=== PATIENT | female | born 1970 | race African-American/Black ===

== ENCOUNTER 2017-09-09 17:12 | Inpatient (IN) | payer OTHER ==
[2017-09-09 17:37] VITALS: BMI 23.0
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
[2017-09-09] MEDS ORDERED: hydrOXYzine PAMOATE 50 MG CAPSULE (FP) PO PRN (19:52)
[2017-09-09] MEDS ORDERED: ACETAMINOPHEN 325 MG TABLET (FP) PO PRN (19:52)
[2017-09-09] MEDS ORDERED: P-EPHED 60MG/TRIPROLIDI 2.5MG TABLET PO PRN (19:52)
[2017-09-09] MEDS ORDERED: MAG HYDROX/AL HYDROX/SIMETH 30 ML UNIT-DOSE CUP PO PRN (19:52)
[2017-09-09] MEDS ORDERED: NICOTINE POLACRILEX 2 MG GUM BC PRN (19:52)
[2017-09-09] MEDS ORDERED: LOPERAMIDE HCL 2 MG CAPSULE PO PRN (19:52)
[2017-09-09] MEDS ORDERED: MAGNESIUM HYDROX 2400MG/30ML ORAL SUSPENSION 30 ML CUP PO PRN (19:52)
[2017-09-09] MEDS ORDERED: MAGNESIUM CITRATE 300 ML BOTTLE PO PRN (19:52)
[2017-09-09] MEDS ORDERED: chlordiazePOXIDE HCL 25 MG CAPSULE PO PRN (19:52)
[2017-09-09] MEDS ORDERED: MENTHOL/PHENOL 1 EACH UD MM PRN (19:52)
[2017-09-09] MEDS ORDERED: IBUPROFEN 400 MG TABLET (FP) PO PRN (19:52)
[2017-09-09] MEDS: CYCLOBENZAPRINE HCL 5 MG TABLET PO SCH (21:11)
[2017-09-09] MEDS: THIAMINE HCL 100 MG TABLET (FP) PO SCH (21:12)
[2017-09-09] MEDS ORDERED: MELATONIN 5 MG TABLETS PO PRN (22:00)
[2017-09-09] MEDS: chlordiazePOXIDE HCL 25 MG CAPSULE PO SCH (23:53)
[2017-09-10] MEDS: guaiFENesin/D-METHORPHAN HB 10 ML UNIT-DOSE CUPS PO PRN ×2 (04:38→15:26)
[2017-09-10] MEDS: chlordiazePOXIDE HCL 25 MG CAPSULE PO SCH ×4 (07:40→22:45)
[2017-09-10] MEDS: CYCLOBENZAPRINE HCL 5 MG TABLET PO SCH ×3 (07:40→22:19)
--- NOTE | 2017-09-10 09:58 | PN ---
S CIWA - CIWA Score Nausea/Vomitin Muscle Tremors: 3 Anxiety: 2 Agitation: 2 Paroxysmal Sweats: 1-Minimal Palms Moist Orientation: 0-Oriented Tacttile Disturbances: 1-Very Mild Itch/Numbness Auditory Disturbances: 1-Very Mild Visual Disturbances: 0-None Headache: 2-Mild CIWA-Ar Total Score: 15 BHS Progress Note (SOAP) Subjective: ALERT,IRRITABLE,ANXIOUS,INTERRUPTED SLEEP,TREMOR Objective: 09/10/17 09:54 Vital Signs Temperature 97.7 F 09/10/17 09:10 Pulse Rate 74 09/10/17 09:10 Respiratory Rate 18 09/10/17 09:10 Blood Pressure 114/74 09/10/17 09:10 O2 Sat by Pulse Oximetry (%) EKG NSR PROLONG QT 412/460 NO CHEST PAIN,NO SOB,NO DIZZINESS LABS PENDING Assessment: 09/10/17 09:57 WITHDRAWAL SYMPTOM Plan: CONTINUE DETOX,
[2017-09-10 10:17] LABS: CHLORIDE 109 mmol/L (98-107); POTASSIUM 4.2 mmol/L (3.5-5.1); SODIUM 145 mmol/L (136-145)
[2017-09-10 10:18] LABS: HEMATOCRIT 40.3 % (32.4-45.2); HEMOGLOBIN 13.4 GM/dL (10.7-15.3); MCH 32.9 pg (25.7-33.7); MCHC 33.4 g/dl (32.0-36.0); MEAN CELL VOLUME 98.6 fl (80-96); MEAN PLT VOLUME 8.8 fl (7.5-11.1); PLATELET COUNT 221 K/MM3 (134-434); RBC 4.08 M/mm3 (3.60-5.2); RDW 12.8 % (11.6-15.6); WHITE BLOOD COUNT 6.2 K/mm3 (4.0-10.0)
[2017-09-10 11:14] LABS: ALBUMIN 3.1 g/dl (3.4-5.0); ALK PHOS 83 U/L (45-117); ANION GAP 5 (8-16); BILIRUBIN,TOTAL 0.7 mg/dL (0.2-1.0); BLOOD UREA NITROGEN 16 mg/dL (7-18); CALCIUM 8.2 mg/dL (8.5-10.1); CO2 31 mmol/L (21-32); CREATININE 1.1 mg/dL (0.55-1.02); GLUCOSE,RANDOM 88 mg/dL (74-106); SGOT/AST 11 U/L (15-37); SGPT/ALT 13 U/L (12-78); TOT PROT 6.2 g/dl (6.4-8.2)
[2017-09-10] MEDS: NICOTINE 14 MG/24 HOURS TOPICAL PATCH TD SCH (11:27)
[2017-09-10] MEDS: PRENATAL VITAMINS W/ FOLIC ACID TABLET (FP) PO SCH (11:28)
--- NOTE | 2017-09-10 16:23 | EKG ---
Test Reason : Blood Pressure : / mmHG Vent. Rate : 075 BPM Atrial Rate : 075 BPM P-R Int : 166 ms QRS Dur : 078 ms QT Int : 412 ms P-R-T Axes : 069 053 070 degrees QTc Int : 460 ms NORMAL SINUS RHYTHM POSSIBLE LEFT ATRIAL ENLARGEMENT BORDERLINE ECG NO PREVIOUS ECGS AVAILABLE Confirmed by MD Ketan, Shmuel ([id number]) on 09/10/2017 4:23:19 PM Referred By: Confirmed By:Shmuel Aceves MD
--- NOTE | 2017-09-10 18:29 | CONSULT ---
[facility] Psychiatric Consult - Data Date of interview: 09/10/17 Admission source: [facility] Identifying data: Patient is approached at bedside for psychiatric interview.Ms Veras declines." Good by, I don't need psychiatrists ".Nursing staff is made aware.
[2017-09-10] MEDS: THIAMINE HCL 100 MG TABLET (FP) PO SCH (22:18)
[2017-09-11] MEDS: chlordiazePOXIDE HCL 25 MG CAPSULE PO SCH ×3 (06:46→17:42)
[2017-09-11] MEDS: CYCLOBENZAPRINE HCL 5 MG TABLET PO SCH ×3 (06:46→22:37)
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
[2017-09-11] MEDS: NICOTINE 14 MG/24 HOURS TOPICAL PATCH TD SCH (10:41)
[2017-09-11] MEDS: PRENATAL VITAMINS W/ FOLIC ACID TABLET (FP) PO SCH (10:41)
[2017-09-11] MEDS: guaiFENesin/D-METHORPHAN HB 10 ML UNIT-DOSE CUPS PO PRN (10:43)
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
[2017-09-11] MEDS: chlordiazePOXIDE 5 MG CAPSULE PO SCH (22:37)
[2017-09-11] MEDS: THIAMINE HCL 100 MG TABLET (FP) PO SCH (22:38)
[2017-09-12] MEDS: chlordiazePOXIDE 5 MG CAPSULE PO SCH ×3 (05:52→17:56)
[2017-09-12] MEDS: CYCLOBENZAPRINE HCL 5 MG TABLET PO SCH ×3 (05:52→22:42)
--- NOTE | 2017-09-12 10:37 | PN ---
BHS Progress Note (SOAP) Subjective: ALERT,IRRITABLE,ANXIOUS,INTERRUPTED SLEEP Objective: 09/12/17 10:36 Vital Signs Temperature 98.8 F 09/12/17 09:13 Pulse Rate 75 09/12/17 09:13 Respiratory Rate 18 09/12/17 09:13 Blood Pressure 101/66 09/12/17 09:13 O2 Sat by Pulse Oximetry (%) Assessment: 09/12/17 10:36 WITHDRAWAL SYMPTOM Plan: CONTINUE DETOX,DISCHARGE IN AM
[2017-09-12] MEDS: NICOTINE 14 MG/24 HOURS TOPICAL PATCH TD SCH (11:00)
[2017-09-12] MEDS: PRENATAL VITAMINS W/ FOLIC ACID TABLET (FP) PO SCH (11:00)
[2017-09-12 14:15] LABS: URINE APPEARANCE SLCLOUDY; URINE BILIRUBIN NEGATIVE (<2.0 mg/dL); URINE GLUCOSE (UA) NEGATIVE (NEGATIVE); URINE KETONE NEGATIVE (NEGATIVE); URINE LEUK ESTERASE NEGATIVE (NEGATIVE); URINE NITRITE NEGATIVE (NEGATIVE); URINE PROTEIN NEGATIVE (NEGATIVE); URINE UROBILINOGEN NEGATIVE mg/dL (0.2-1.0)
[2017-09-12 14:19] LABS: URINE COLOR DK YELLOW
[2017-09-12] MEDS: THIAMINE HCL 100 MG TABLET (FP) PO SCH (22:42)
[2017-09-12] MEDS: chlordiazePOXIDE HCL 10 MG CAPSULE PO SCH (22:43)
[2017-09-13] MEDS: chlordiazePOXIDE HCL 10 MG CAPSULE PO SCH (05:45)
[2017-09-13 06:20] VITALS: BP 115/69; PULSE 63; TEMP 97.7
[2017-09-13] MEDS: CYCLOBENZAPRINE HCL 5 MG TABLET PO SCH (07:13)
--- NOTE | 2017-09-13 08:22 | PN ---
S Progress Note (SOAP) Subjective: alert,no complaint Objective: 09/13/17 08:20 Vital Signs Temperature 97.7 F 09/13/17 06:00 Pulse Rate 63 09/13/17 06:00 Respiratory Rate 18 09/13/17 06:00 Blood Pressure 115/69 09/13/17 06:00 O2 Sat by Pulse Oximetry (%) Assessment: 09/13/17 08:21 detox completed,no withdrawal symptom Plan: discharge today,follow up with after care program as arrangement
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
== END 2017-09-13 09:12 | disposition home or self-care (01) | DRG 774 ==
LOC: YASAS 17:12 → Y6N 20:35
PROVIDERS: ADMIT Surgery; ATTEND Surgery
PROC: HZ2ZZZZ Detoxification Services for Substance Abuse Treatment (ICD-10-PCS; principal; 2017-09-09)
DX: F10.230 Alcohol dependence with withdrawal, uncomplicated (principal); F14.20 Cocaine dependence, uncomplicated; F17.213 Nicotine dependence, cigarettes, with withdrawal; F32.9 Major depressive disorder, single episode, unspecified; E86.0 Dehydration; Z94.5 Skin transplant status
CPT/HCPCS: 36415; 80053; 81003; 85027; 86593; 87389; 93005; 93010

== ENCOUNTER 2020-07-04 11:37 | Inpatient (IN) | payer OTHER ==
[2020-07-04 14:03] VITALS: BMI 22.4
[2020-07-04] MEDS ORDERED: P-EPHED 60MG/TRIPROLIDI 2.5MG TABLET PO PRN (17:24)
[2020-07-04] MEDS ORDERED: hydrOXYzine PAMOATE 25 MG CAPSULE (FP) PO PRN (17:24)
[2020-07-04] MEDS ORDERED: MELATONIN 5 MG TABLETS PO PRN (17:24)
[2020-07-04] MEDS ORDERED: MAG HYDROX/AL HYDROX/SIMETH 30 ML UNIT-DOSE CUP PO PRN (17:24)
[2020-07-04] MEDS ORDERED: LOPERAMIDE HCL 2 MG CAPSULE PO PRN (17:24)
[2020-07-04] MEDS ORDERED: NICOTINE POLACRILEX 2 MG GUM BC PRN (17:24)
[2020-07-04] MEDS ORDERED: MAGNESIUM CITRATE 300 ML BOTTLE PO PRN (17:24)
[2020-07-04] MEDS ORDERED: IBUPROFEN 400 MG TABLET (FP) PO PRN (17:24)
[2020-07-04] MEDS ORDERED: ACETAMINOPHEN 325 MG TABLET (FP) PO PRN (17:24)
[2020-07-04] MEDS ORDERED: guaiFENesin 200 MG/10 ML 10 ML UNIT-DOSE CUPS PO PRN (17:24)
[2020-07-04] MEDS ORDERED: MAGNESIUM HYDROX 2400MG/30ML ORAL SUSPENSION 30 ML CUP PO PRN (17:24)
[2020-07-04] MEDS ORDERED: TUBERCULIN PPD 5 TU/0.1ML VIAL ID ONE (19:08)
[2020-07-04] MEDS: THIAMINE HCL 100 MG TABLET (FP) PO SCH (22:25)
[2020-07-04] MEDS: TOLNAFTATE 1% CREAM 15 GM TUBE TP SCH (22:25)
[2020-07-05] MEDS: TOLNAFTATE 1% CREAM 15 GM TUBE TP SCH ×2 (10:57→22:43)
[2020-07-05] MEDS: NICOTINE 7 MG/24 HOURS TOPICAL PATCH TD SCH (10:57)
[2020-07-05] MEDS: PRENATAL VITAMINS W/ FOLIC ACID TABLET (FP) PO SCH (10:57)
[2020-07-05 12:02] LABS: HEMATOCRIT 40.3 % (32.4-45.2); HEMOGLOBIN 13.5 GM/dL (10.7-15.3); MCH 33.1 pg (25.7-33.7); MCHC 33.5 g/dl (32.0-36.0); MEAN CELL VOLUME 98.8 fl (80-96); MEAN PLT VOLUME 8.5 fl (7.5-11.1); PLATELET COUNT 269 K/MM3 (134-434); RBC 4.08 M/mm3 (3.60-5.2); RDW 13.3 % (11.6-15.6); WHITE BLOOD COUNT 6.1 K/mm3 (4.0-10.0)
[2020-07-05 12:18] LABS: POTASSIUM 3.9 mmol/L (3.5-5.1)
[2020-07-05 12:22] LABS: BLOOD UREA NITROGEN 19.6 mg/dL (7-18); CALCIUM 8.8 mg/dL (8.5-10.1)
[2020-07-05] MEDS ORDERED: MASKS NR ONE (12:23)
[2020-07-05 12:26] LABS: CREATININE 0.9 mg/dL (0.55-1.3)
[2020-07-05 12:27] LABS: BILIRUBIN,TOTAL 0.2 mg/dL (0.2-1)
[2020-07-05] MEDS: THIAMINE HCL 100 MG TABLET (FP) PO SCH (22:43)
[2020-07-06 07:14] VITALS: TEMP 97.8
[2020-07-06] MEDS: PRENATAL VITAMINS W/ FOLIC ACID TABLET (FP) PO SCH (09:58)
[2020-07-06] MEDS: TOLNAFTATE 1% CREAM 15 GM TUBE TP SCH ×2 (09:59→22:01)
[2020-07-06] MEDS: NICOTINE 7 MG/24 HOURS TOPICAL PATCH TD SCH (09:59)
[2020-07-06] MEDS: THIAMINE HCL 100 MG TABLET (FP) PO SCH (21:57)
[2020-07-07 07:15] VITALS: BP 109/80; PULSE 81
[2020-07-07] MEDS: NICOTINE 7 MG/24 HOURS TOPICAL PATCH TD SCH (10:18)
[2020-07-07] MEDS: TOLNAFTATE 1% CREAM 15 GM TUBE TP SCH ×2 (10:18→21:58)
[2020-07-07] MEDS: PRENATAL VITAMINS W/ FOLIC ACID TABLET (FP) PO SCH (10:18)
[2020-07-07] MEDS ORDERED: MASKS NR ONE (15:34)
[2020-07-07] MEDS: THIAMINE HCL 100 MG TABLET (FP) PO SCH (21:57)
[2020-07-08] MEDS: PRENATAL VITAMINS W/ FOLIC ACID TABLET (FP) PO SCH (10:19)
[2020-07-08] MEDS: NICOTINE 7 MG/24 HOURS TOPICAL PATCH TD SCH (10:19)
[2020-07-08] MEDS: TOLNAFTATE 1% CREAM 15 GM TUBE TP SCH (10:20)
== END 2020-07-08 10:45 | disposition left against medical advice (07) | DRG 770 ==
LOC: YASAS 11:37 → Y5N 17:20
PROVIDERS: ADMIT Allergy & Immunology; ATTEND Allergy & Immunology
PROC: HZ42ZZZ Group Counseling for Substance Abuse Treatment, Cognitive-Behavioral (ICD-10-PCS; principal; 2020-07-04)
DX: F10.20 Alcohol dependence, uncomplicated (principal); F14.20 Cocaine dependence, uncomplicated; F17.210 Nicotine dependence, cigarettes, uncomplicated; F20.9 Schizophrenia, unspecified; F31.9 Bipolar disorder, unspecified; F41.9 Anxiety disorder, unspecified; D25.9 Leiomyoma of uterus, unspecified; N64.81 Ptosis of breast; N63.20 Unspecified lump in the left breast, unspecified quadrant; Z89.029 Acquired absence of unspecified finger(s); Z94.5 Skin transplant status
CPT/HCPCS: 36415; 80053; 85027; 86780; 93005; 93010; C9803; U0003